=== PATIENT | male | born 1960 | race Two or more races ===

== ENCOUNTER 2019-06-19 11:44 | Emergency (ER) | payer MEDICAID ==
[~2019-06-19] VITALS: Ht 167.6 cm; Wt 104.0 kg
[2019-06-19] MEDS ORDERED: ACETAMINOPHEN 325MG TABLET PO ONE (13:00)
[2019-06-19 14:12] VITALS: BP 120/92
== END 2019-06-19 14:13 | disposition home or self-care (01) ==
LOC: ER 11:44
DX: S29.012A Strain of muscle and tendon of back wall of thorax, initial encounter (principal); M62.830 Muscle spasm of back; X58.XXXA Exposure to other specified factors, initial encounter; Y93.89 Activity, other specified; Y92.89 Other specified places as the place of occurrence of the external cause; R03.0 Elevated blood-pressure reading, without diagnosis of hypertension
CPT/HCPCS: 99282; 99283